=== PATIENT | female | born 1975 | race African-American/Black ===

== ENCOUNTER 2019-08-27 11:37 | Outpatient (CLI) | payer OTHER | END 2019-08-27 23:59 | disposition home or self-care (01) | LOC: CFH 11:37 | PROVIDERS: ATTEND Nurse Practitioner Family | DX: M51.36 Other intervertebral disc degeneration, lumbar region (principal); M19.90 Unspecified osteoarthritis, unspecified site; M48.061 Spinal stenosis, lumbar region without neurogenic claudication | CPT/HCPCS: 72114 ==